=== PATIENT | female | born 1960 | race Caucasian/White ===

== ENCOUNTER 2021-11-14 09:10 | Outpatient (CLI) | payer BC, SELFPAY ==
--- NOTE | 2021-11-14 09:15 | CRLHL7_ITS ---
For Patients: As a result of the Century Cures Act, medical imaging exams and procedure reports are released immediately into your electronic medical record. You may view this report before your referring provider. If you have questions, please contact your health care provider. BILATERAL SCREENING MAMMOGRAM WITH COMPUTER-AIDED DETECTION AND TOMOSYNTHESIS TECHNIQUE: CC and MLO views were obtained. These mammographic images have been obtained using full-field digital technique. These mammographic images were interpreted with the benefit of computer-aided detection. Breast Tomosynthesis was used in this interpretation. COMPARISON FILM: 10/02/20, 09/20/19, 05/06/18. FINDINGS: There are scattered areas of fibroglandular density IMPRESSION: There is no radiographic evidence for malignancy. ASSESSMENT: BI-RADS Category 1: Negative RECOMMENDATION: Routine screening mammogram in 1 year. A lay language report of this examination will be provided to the patient. Sal Mcallister M.D. Diagnostic Radiologist [email or web address] ALIA/Dictated by: Sal Mcallister MD @ 11/14/2021 1:16:00 PM (Electronically Signed)
== END 2021-11-14 09:11 | disposition home or self-care (01) ==
LOC: MAMMO 09:11
DX: Z12.31 Encounter for screening mammogram for malignant neoplasm of breast (principal)
CPT/HCPCS: 77063; 77067

== ENCOUNTER 2022-05-07 08:32 | Outpatient (CLI) | payer OTHER, SELFPAY ==
--- NOTE | 2022-05-07 08:45 | CRLHL7_ITS ---
For Patients: As a result of the Century Cures Act, medical imaging exams and procedure reports are released immediately into your electronic medical record. You may view this report before your referring provider. If you have questions, please contact your health care provider. RIGHT DIAGNOSTIC MAMMOGRAM WITH COMPUTER-AIDED DETECTION AND TOMOSYNTHESIS RIGHT BREAST ULTRASOUND CLINICAL HISTORY: RIGHT breast palpable lump. COMPARISON: 11/14/2021, 10/02/2020, 09/20/2019, 05/06/2018, 03/18/2017, 03/05/2016, 02/13/2015, 12/18/2013. TECHNIQUE: Digital RIGHT mammogram in 2 projections. Computer-aided detection and tomosynthesis were used. Real-time ultrasound imaging of RIGHT breast with imaging documentation. Scanning was performed by both the technologist and the radiologist. BREAST COMPOSITION: There are scattered areas of fibroglandular density FINDINGS: 3D CC/MLO RIGHT breast mammogram images submitted. Multiple enlarged RIGHT axillary lymph nodes are present corresponding to the area of palpable concern. Additionally, there is an ovoid mass within the upper-outer quadrant of the RIGHT breast located 8 cm from the nipple. On multiple previous mammogram images, the patient has had numerous RIGHT axillary tail/RIGHT axillary lymph nodes which have not been enlarged. The enlargement of these lymph nodes are new and there are multiple new smaller lymph nodes present on the current study. Targeted RIGHT breast ultrasound performed. In the area of palpable concern, there is an enlarged hypoechoic RIGHT axillary lymph node measuring 1.9 x 1.9 x 2.0 cm. Increased internal vascularity present. Absent central fatty hilum. Multiple adjacent enlarged lymph nodes are present. Targeted RIGHT breast ultrasound performed in the area of the upper outer quadrant nodule performed. In this location there is a hypervascular circumscribed macro lobular hypoechoic solid mass at 11 o`clock 8 cm from the nipple measuring 1.7 x 1.2 x 2.2 cm. Multiple other smaller hypoechoic structures are present in the adjacent tissues. IMPRESSION: Suspicious RIGHT axillary lymph nodes and suspicious upper outer quadrant lesion in the RIGHT breast. RECOMMENDATIONS: Ultrasound-guided core needle biopsy of both lesions recommended. BI-RADS Category 4: Suspicious Results and recommendations discussed with the patient. A lay language report of this examination will be provided to the patient. Dictated by Sal Mcallister MD @ 05/07/2022 12:00:21 PM/katie ALIA/Dictated by: Sal Mcallister MD @ 05/07/2022 12:00:00 PM (Electronically Signed)
--- NOTE | 2022-05-07 09:15 | CRLHL7_ITS ---
For Patients: As a result of the Century Cures Act, medical imaging exams and procedure reports are released immediately into your electronic medical record. You may view this report before your referring provider. If you have questions, please contact your health care provider. PLEASE SEE RIGHT DIAGNOSTIC MAMMOGRAM OF SAME DAY. CRL:katie ALIA/Dictated by: Sal Mcallister MD @ 05/07/2022 12:00:00 PM (Electronically Signed)
== END 2022-05-07 08:33 | disposition home or self-care (01) ==
PROVIDERS: PCP Family Medicine; Visit Provider Family Medicine
DX: N63.11 Unspecified lump in the right breast, upper outer quadrant (principal); R22.31 Localized swelling, mass and lump, right upper limb
CPT/HCPCS: 76642; 77065; G0279

== ENCOUNTER 2022-05-09 10:47 | Outpatient (CLI) | payer OTHER, SELFPAY ==
--- NOTE | 2022-05-09 11:15 | CRLHL7_ITS ---
Patient: ALBERTO LAEK Facility:?[facility] Patient ID:?[id number] Site Patient ID:?[id number]. Site :?[id number] Study:?US-Breast Procedure DR AMARO TO READ-05/09/2022 12:09:45 PM Ordering Physician:?Becca Urbina Final Report: ULTRASOUND-GUIDED BREAST BIOPSY AND POST-BIOPSY DIGITAL MAMMOGRAM FOR BIOPSY MARKER PLACEMENT CLINICAL HISTORY: Suspicious mass. COMPARISON STUDIES: 05/07/2022. TECHNIQUE: Real-time ultrasound with image documentation was used for targeting the breast lesion. Core biopsy specimens were obtained using an automated gun with a 18- gauge biopsy needle. Post-biopsy CC and ML digital mammograms were obtained to document position of the biopsy marker. CONSENT and TIME OUT: The procedure, risks, and alternatives were explained to the patient and a consent was signed. [place] Protocol was followed including pre-procedure verification that relevant information/documentation was available, reviewed and properly matched to the patient; consent accurate and complete; and equipment and supplies available. Time Out was conducted just prior to starting procedure to verify the four required elements: patient identity, correct side/site marked (if applicable), procedure, relevant images/results properly labeled and displayed (if applicable). PROCEDURE: The patient was positioned supine on the ultrasound table. The breast was prepped with ChloraPrep. 8 cc 1 percent lidocaine used for local anesthesia. Core samples were obtained. A sterile metal biopsy clip was placed percutaneously to reece the lesion position within the breast. The specimens were placed in 10% formalin and sent to the pathology department. Pressure was held on the biopsy site until all bleeding subsided. The skin incision was closed with Steri-Strips. An ice pack was positioned over the biopsy site. Post-biopsy instructions were reviewed with the patient, and a written copy was given to her. LATERALITY: RIGHT breast. LESION: Solid macro lobulated hypoechoic mass measuring 1.7 x 1.2 x 2.2 cm at 11 o`clock 8 cm from the nipple. SUSPICION FOR MALIGNANCY: High. NUMBER OF SAMPLES: 5. BIOPSY CLIP SHAPE: Oval. PROXIMITY OF CLIP TO TARGET: Within the lesion. IMPRESSION: Ultrasound-guided breast biopsy. When the pathology report is available, an addendum to this report will be made. ACR not applicable Dictated by Sal Amaro MD @ 05/09/2022 12:21:08 PM jj/Dictated by: Sal Amaro MD @ 05/09/2022 12:21:00 PM ----- ADDENDUM ----- Pathology consistent with invasive carcinoma, poorly differentiated. This is concordant. Appropriate action recommended. Dictated by Sal Amaro MD @ May 09 2022 12:21PM Signed by:?Sal Amaro MD @05/09/2022 2:02:12 PM (Electronic Signature)
--- NOTE | 2022-05-09 11:15 | CRLHL7_ITS ---
For Patients: As a result of the Century Cures Act, medical imaging exams and procedure reports are released immediately into your electronic medical record. You may view this report before your referring provider. If you have questions, please contact your health care provider. ULTRASOUND-GUIDED RIGHT AXILLARY LYMPH NODE BIOPSY CLINICAL HISTORY: Suspicious palpable mass. COMPARISON STUDIES: 05/07/2022. TECHNIQUE: Real-time ultrasound with image documentation was used for targeting the RIGHT axillary lesion. Core biopsy specimens were obtained using an automated gun with an 18-gauge biopsy needle. CONSENT and TIME OUT: The procedure, risks, and alternatives were explained to the patient and a consent was signed. [place] Protocol was followed including pre-procedure verification that relevant information/documentation was available, reviewed and properly matched to the patient; consent accurate and complete; and equipment and supplies available. Time Out was conducted just prior to starting procedure to verify the four required elements: patient identity, correct side/site marked (if applicable), procedure, relevant images/results properly labeled and displayed (if applicable). PROCEDURE: The patient was positioned supine on the ultrasound table. The right axilla was prepped with ChloraPrep. 8 cc of 1 percent lidocaine used for local anesthesia. Core samples were obtained. A sterile metal biopsy clip was placed percutaneously to reece the lesion position within the right axilla. The specimens were placed in 10% formalin and sent to the pathology department. Pressure was held on the biopsy site until all bleeding subsided. The skin incision was closed with Steri-Strips. An ice pack was positioned over the biopsy site. Post-biopsy instructions were reviewed with the patient, and a written copy was given to her. LATERALITY: RIGHT axilla. LESION: Solid hypoechoic enlarged lymph node measuring 1.9 x 1.9 x 2.0 cm in the RIGHT axilla. SUSPICION FOR MALIGNANCY: High. NUMBER OF SAMPLES: 5. BIOPSY CLIP SHAPE: Oval. PROXIMITY OF CLIP TO TARGET: Within the lesion. IMPRESSION: Ultrasound-guided RIGHT axillary lymph node biopsy. When the pathology report is available, an addendum to this report will be made. ACR not applicable Dictated by Sal Mcallister MD @ 05/09/2022 12:23:03 PM jj/Dictated by: Sal Mcallister MD @ 05/09/2022 12:23:00 PM (Electronically Signed) ----- ADDENDUM ----- Addendum: Pathology consistent with metastatic carcinoma. This is concordant. Appropriate action recommended. Dictated by Sal Mcallister MD @ May 09 2022 12:23PM Signed by:?Sal Mcallister MD @05/09/2022 2:02:14 PM (Electronic Signature)
--- NOTE | 2022-05-09 12:00 | CRLHL7_ITS ---
For Patients: As a result of the Cures Act, medical imaging exams and procedure reports are released immediately into your electronic medical record. You may view this report before your referring provider. If you have questions, please contact your health care provider. PLEASE SEE ULTRASOUND-GUIDED RIGHT BREAST AND RIGHT LYMPH NODE BIOPSY PERFORMED SAME DAY CRL:[email or web address] caraballo/Dictated by: Sal Mcallister MD @ 05/09/2022 12:21:00 PM (Electronically Signed)
== END 2022-05-09 10:48 | disposition home or self-care (01) ==
LOC: US 10:48
PROVIDERS: PCP Family Medicine; Visit Provider Family Medicine
DX: N63.10 Unspecified lump in the right breast, unspecified quadrant (principal); C50.911 Malignant neoplasm of unspecified site of right female breast; R92.8 Other abnormal and inconclusive findings on diagnostic imaging of breast
CPT/HCPCS: 19083; 38505; 76942; 77065; 88305; 88341; 88342; 88360; 88361; A4648; A4649